=== PATIENT | male | born 1990 | race Caucasian/White ===

== ENCOUNTER 2017-01-27 12:56 | Emergency (ER) | payer SELFPAY ==
[~2017-01-27] VITALS: Ht 172.7 cm; Wt 72.6 kg
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
[2017-01-27 14:33] VITALS: BP 145/62
== END 2017-01-27 14:34 | disposition home or self-care (01) ==
LOC: ER 12:56
DX: S02.2XXA Fracture of nasal bones, initial encounter for closed fracture (principal); S00.83XA Contusion of other part of head, initial encounter; F17.210 Nicotine dependence, cigarettes, uncomplicated; Y04.0XXA Assault by unarmed brawl or fight, initial encounter; Y93.89 Activity, other specified; Y99.8 Other external cause status; Y92.89 Other specified places as the place of occurrence of the external cause
CPT/HCPCS: 70486; 99284-25